=== PATIENT | female | born 1980 | race Caucasian/White ===

== ENCOUNTER → 2016-12-13 | Outpatient (CLI) | payer BC ==
[~2016-12-13] MED LIST: CETI10TA10 PO; CETICHW4 PO; CLIN150C PO; FLUT0.15 NAE; MOME6000 NAE; PRENTAB26 PO
--- NOTE | 2016-12-13 09:29 | DIAGNOSTIC IMAGING REPORT ---
RIGHT KNEE 4 OR MORE CLINICAL HISTORY: RIGHT KNEE PAIN Right pain COMPARISON: None. DISCUSSION: The bones and joint spaces appear intact. There is no evidence of fracture, dislocation or bony disease. There is no evidence for soft tissue swelling. IMPRESSION: Negative study. Electronically signed by: Greg Lynne M.D. 12/13/2016 9:28 AM Dictated Date/Time: 12/13/2016 9:27 AM
== END | disposition home or self-care (01) ==
LOC: C.RDSM 09:10
PROVIDERS: ATTEND Internal Medicine
DX: M25.561 Pain in right knee (principal)

== ENCOUNTER → 2016-12-17 | Outpatient (CLI) | payer BC ==
--- NOTE | 2016-12-18 08:41 | DIAGNOSTIC IMAGING REPORT ---
MRI OF THE RIGHT KNEE WITHOUT CONTRAST CLINICAL HISTORY: Right knee pain and swelling. COMPARISON STUDY: Right knee radiographs December 13, 2016. TECHNIQUE: Utilizing a 1.5 Melina magnet and dedicated coil, multiplanar, multiecho imaging of the right knee was performed without intravenous or intraarticular contrast. FINDINGS: There is moderate lateral patellar tilt. There is no evidence for a recent lateral patellar dislocation. There is a moderate-sized joint effusion. A few loose bodies are noted within the joint space along the anterior aspect of the lateral tibial plateau. These measure up to 8 mm and are shown on coronal image 13 of 29. There is multifocal high-grade chondrosis within the medial femoral condyle with mild subchondral edema. There is moderate chondrosis of the trochlear cartilage and mild chondrosis within the patellar cartilage. The cruciate and collateral ligaments are intact. No meniscal tear is identified. There is no marrow replacement. IMPRESSION: 1. 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 2. Moderate size right knee joint effusion. 3. Intact cruciate and collateral ligaments. 4. No meniscal tear. 5. Moderate lateral patellar tilt with no evidence for a recent dislocation. 6. Moderate trochlear chondrosis. Electronically signed by: Yunier Ching M.D. 12/18/2016 8:40 AM Dictated Date/Time: 12/17/2016 1:38 PM
== END | disposition home or self-care (01) ==
LOC: C.MRI 12:40
PROVIDERS: ATTEND Internal Medicine
DX: M25.569 Pain in unspecified knee (principal); M25.461 Effusion, right knee

== ENCOUNTER → 2017-01-19 | Day surgery (SDC) | payer BC ==
[2016-12-30 15:17] VITALS: Ht 170.2 cm; Wt 88.6 kg
[~2017-01-19] VITALS: Ht 170.2 cm; Wt 88.6 kg
[~2017-01-19] MED LIST changes: +ATROPINE SULFATE 0.1 MG/ML 5ML SYR IV PRN; -CETICHW4 PO; +DEXAMETHASONE SOD INJ 4 MG/ML VIAL ONE; +FENTANYL CITRATE INJ 50 MCG/1 ML 2 ML VIAL IV PRN; +FENTANYL CITRATE INJ 50 MCG/1 ML 2 ML VIAL ONE; +IBUPROFEN 600 MG TAB PO PRN; +KETOROLAC TROMETHAMINE 30 MG/ML VIAL IV. PRN; +KETOROLAC TROMETHAMINE 30 MG/ML VIAL ONE; +LACTATED RINGER'S 1000ML 1,000 ML IV SCH; +LACTATED RINGER'S 1000ML 500 ML IV ONE; +LIDOCAINE HCL 2% 2 ML VIAL (20MG/ML) ONE; +LIDOCAINE HCL 2% LOCAL 20 ML VIAL ONE; +MIDAZOLAM HCL 1 MG/ML 2ML VIAL ONE; -MOME6000 NAE; +MoRPHine SULFATE 2 MG/ML CARP IV PRN; +MoRPHine SULFATE 4 MG/ML 1 ML CARP\\VIAL IV PRN; +ONDANSETRON INJ 2 MG/ML 2 ML VIAL IV PRN; +ONDANSETRON INJ 2 MG/ML 2 ML VIAL ONE; +OXYCODONE/ACETAMINOPHEN 5-325 TAB PO PRN; -PRENTAB26 PO; +PROPOFOL IV EMULSION 10 MG/ML 20 ML VIAL IV ONE; +SILVER NITR/POTASSIUM NITRATE 10 APPLICATOR PACK ONE; +SODIUM CHLORIDE 0.9% 1000ML 1,000 ML IV SCH
--- NOTE | 2017-01-19 12:36 | History & Physical Bridge - [place] ---
H&P Re-Evaluation Bridge Note: I have examined the patient, reviewed the History & Physical and in the interval since the performance of the History & Physical I have noted the following changes of clinical significance: notes the opening in the cyst is larger.
[2017-01-19 13:22] VITALS: BP 115/80; PULSE 64; TEMP 37; O2SAT 97
--- NOTE | 2017-01-19 13:25 | Discharge Instructions ---
Discharge Instructions Date of Service Jan 19, 2017. Visit Reason for Visit: Vulvar Cyst Discharge Discharge Diagnosis / Problem: s/p reapproximation of perineal body Discharge Goals Goal(s): Specific goals Activity Recommendations Activity Limitations: per Instructions/Follow-up section Anesthesia . Post Anesthesia Instructions: If you have had General Anesthesia or IV Sedation: * Do not drive today. * Resume driving when surgeon permits. * Do not make important decisions or sign legal documents today. * Call surgeon for: 1. Temperature elevations greater than 101 degrees F. 2. Uncontrollable pain. 3. Excessive bleeding. 4. Persistent nausea and vomiting. 5. Medication intolerance (nausea, vomiting or rash). * For nausea and vomiting use only clear liquids such as: tea, soda, bouillon until nausea subsides, then gradually increase diet as tolerated. * If you have any concerns or questions, call your surgeon's office. If physician is unavailable and it is an emergency, call 911 or go to the nearest emergency room. . Instructions / Follow-Up Instructions / Follow-Up ACTIVITY RECOMMENDATIONS: * Avoid tampons, douching, hot tubs, pools, and intercourse until cleared by physician. * May shower as usual. * No strenuous activity for 2 weeks. * Sitz bath daily for 2 weeks. * Keep area clean and dry. SPECIAL CARE INSTRUCTIONS: Special Diet: * Mild nausea may occur in the immediate post-operative period. * Take clear liquids such as tea, cola or bouillon until all nausea has subsided; you may then resume your normal diet. Special Care: * Light bleeding may occur for several days. Call if bleeding heavy. * Check your temperature twice a day for one week. If it goes above 100.4 degrees Fahrenheit (38.0 Celsius), notify your doctor. * Call your doctor's office for an appointment for 2 weeks after your surgery. * Call the office if you feel the incision is opening. FOLLOW-UP VISIT: Call your doctor's office for an appointment for 2 weeks after your surgery. Diet Recommendations Recommended Home Diet: no limitations, resume previous diet Procedures Procedures Performed: Perineal Cyst Excision Pending Studies Studies pending at discharge: no Medical Emergencies . Who to Call and When: Medical Emergencies: If at any time you feel your situation is an emergency, please call 911 immediately. . Non-Emergent Contact Non-Emergency issues call your: Shaper Set Up Operator . . "Provider Documentation" section prepared by Shahrzad Garcia.
--- NOTE | 2017-01-19 13:27 | [facility] Post Operative Brief Note ---
Immediate Operative Summary Operative Date Jan 19, 2017. Pre-Operative Diagnosis Vulvar Cyst Post-Operative Diagnosis opening of perineal body with drained vulvar cyst. Procedure(s) Performed reapproximation of perineal body skin Surgeon Dr. Garcia Kinder Teacher Surgeon(s) None Estimated Blood Loss 5 ml Findings the skin of the perineal body where the cyst was had opened and drained . the area was about 2cm and was reapproximated. Specimens A. Skin from Perineum Drains none Anesthesia local with sedation Complication(s) None Disposition Recovery Room / PACU
--- NOTE | 2017-01-19 13:56 | OPERATIVE REPORT ---
DATE OF OPERATION: 01/19/2017 PREOPERATIVE DIAGNOSIS: Draining vulvar cyst. POSTOPERATIVE DIAGNOSIS: perineal skin with drained vulvar cyst. PROCEDURE: Reapproximation of perineal skin. SURGEON: Shahrzad Garcia MD ANESTHESIA: Sedation with local. ESTIMATED BLOOD LOSS: 5 mL. INDICATIONS: The patient is a 1, para 1, about 4 months , who presented to the office noticing some tenderness which she thought was hemorrhoid and actually turned out to be a vulvar cyst at the area of her episiotomy that had a pinpoint opening and was draining. We decided to excise this in the operating room. FINDINGS: When the patient presented to the operating room, she noted preoperatively that the hole was bigger. On examination under anesthesia, the cyst had completely opened and drained and the perineal skin had opened approximately 2 cm. This was not deep. COMPLICATIONS: None. DRAINS: None. DISPOSITION: To recovery room in stable condition. PROCEDURE IN DETAIL: The patient was taken to the operating room where she was identified verbally and by bracelet. She was placed in dorsal supine position where sedation was performed. Her legs were placed in candy cane stirrups. Her perineum was examined with the above noted findings. The cyst had drained, the perineal skin had opened and over the area of her episiotomy. The patient was prepped and draped in normal sterile fashion. Time-out was held, identifying correct patient, procedure and positioning. The area was examined, palpated and there was no further cystic area noted. Some areas of the skin edges were taken off to get fresh edges for healing. Some bleeding edges were attended to with Bovie electrocautery and silver nitrate. Deep horizontal mattress suture was placed to bring the skin edges closer together and then approximately 8 interrupted sutures of 4-0 Vicryl were used to reapproximate the perineal skin. Hemostasis was noted to be good at the end and the procedure was terminated. All sponge, lap and needle counts were correct x2. The patient tolerated the procedure well and was taken to recovery room in stable condition. I attest to the content of the Intraoperative Record and any orders documented therein. Any exceptio ns are noted below.
--- NOTE | 2017-01-19 13:58 | Anesthesia Progress Nt - [facility] ---
Anesthesia Post Op Note Date & Time Jan 19, 2017 at 13:57 Vital Signs Pain Intensity: 3.0 Vital Signs Past 12 Hours Date Time Temp Pulse Resp B/P Pulse Ox O2 Delivery O2 Flow Rate FiO2 01/19/17 13:22 37.0 64 14 115/80 97 Room Air 01/19/17 11:41 36.6 81 16 123/81 97 Room Air Notes Mental Status: alert / awake / arousable, participated in evaluation Pt Amnestic to Procedure: Yes Nausea / Vomiting: adequately controlled Pain: adequately controlled Airway Patency, RR, SpO2: stable & adequate BP & HR: stable & adequate Hydration State: stable & adequate Anesthetic Complications: no major complications apparent
--- NOTE | 2017-01-19 14:00 | Medical Student: [facility] ---
Immediate Operative Summary Operative Date Jan 19, 2017. Pre-Operative Diagnosis Vulvar Cyst Post-Operative Diagnosis Opening of perineal body with drained vulvar cyst Procedure(s) Performed reapproximation of perineal body skin Surgeon Dr. Shahrzad Garcia Flake Or Shred Roll Operator Surgeon(s) none Estimated Blood Loss 5cc Findings the skin of the perineal body was opened vertically 2 cm; cyst had opened and drained prior to procedure Specimens skin Drains none Anesthesia Sedation with Local Lidocaine Complication(s) None Disposition Recovery Room / PACU
== END | disposition home or self-care (01) ==
LOC: X.SURG 11:19
PROVIDERS: ATTEND Obstetrics & Gynecology
DX: N90.7 Vulvar cyst (principal)

== ENCOUNTER → 2017-06-02 | Day surgery (SDC) | payer BC ==
[2017-05-16 08:19] VITALS: Ht 170.2 cm; Wt 88.6 kg
[~2017-06-02] VITALS: Ht 170.2 cm; Wt 88.6 kg
[~2017-06-02] MED LIST changes: -ATROPINE SULFATE 0.1 MG/ML 5ML SYR IV PRN; -CLIN150C PO; -DEXAMETHASONE SOD INJ 4 MG/ML VIAL ONE; -FENTANYL CITRATE INJ 50 MCG/1 ML 2 ML VIAL IV PRN; -FENTANYL CITRATE INJ 50 MCG/1 ML 2 ML VIAL ONE; -IBUPROFEN 600 MG TAB PO PRN; -KETOROLAC TROMETHAMINE 30 MG/ML VIAL IV. PRN; -KETOROLAC TROMETHAMINE 30 MG/ML VIAL ONE; -LACTATED RINGER'S 1000ML 1,000 ML IV SCH; -LACTATED RINGER'S 1000ML 500 ML IV ONE; -LIDOCAINE HCL 2% 2 ML VIAL (20MG/ML) ONE; -LIDOCAINE HCL 2% LOCAL 20 ML VIAL ONE; -MIDAZOLAM HCL 1 MG/ML 2ML VIAL ONE; -MoRPHine SULFATE 2 MG/ML CARP IV PRN; -MoRPHine SULFATE 4 MG/ML 1 ML CARP\\VIAL IV PRN; -ONDANSETRON INJ 2 MG/ML 2 ML VIAL IV PRN; -ONDANSETRON INJ 2 MG/ML 2 ML VIAL ONE; -OXYCODONE/ACETAMINOPHEN 5-325 TAB PO PRN; -PROPOFOL IV EMULSION 10 MG/ML 20 ML VIAL IV ONE; -SILVER NITR/POTASSIUM NITRATE 10 APPLICATOR PACK ONE; -SODIUM CHLORIDE 0.9% 1000ML 1,000 ML IV SCH
== END | disposition home or self-care (01) ==
LOC: EDSTATUS 08:15 → C.PAT 14:30
PROVIDERS: ATTEND Physical Medicine & Rehabilitation Sports Medicine
DX: M67.861 Other specified disorders of synovium, right knee (principal)